=== PATIENT | female | born 1955 | race Caucasian/White ===

== ENCOUNTER 2020-09-01 13:42 | Emergency (ER) | payer MEDICARE, OTHER ==
[~2020-09-01] VITALS: Ht 154.9 cm; Wt 68.5 kg
[2020-09-01 13:54] VITALS: BP 131/83
[2020-09-01] MEDS ORDERED: KETOROLAC TROMETHAMINE 15 MG/ML VIAL ONE (14:30)
[2020-09-01] MEDS: KETOROLAC TROMETHAMINE INJ 30 MG/ML VIAL IM ONE (14:35)
[2020-09-01] MEDS ORDERED: IBUP-1955 PO (14:50)
--- NOTE | 2020-09-01 15:48 | NUR ---
CERTIFIED PUBLIC ACCOUNTANT CALLED FOR ASSISTANCE WITH RX PER REQUEST
== END 2020-09-01 16:09 | disposition home or self-care (01) ==
LOC: ER 13:58
DX: M17.12 Unilateral primary osteoarthritis, left knee (principal); E11.9 Type 2 diabetes mellitus without complications; Z79.899 Other long term (current) drug therapy
CPT/HCPCS: 73564; 96372; 99283; J1885

== ENCOUNTER 2021-05-22 17:25 | Emergency (ER) | payer BC, OTHER ==
[~2021-05-22] VITALS: Ht 154.9 cm; Wt 68.5 kg
[~2021-05-22 17:25] MED LIST: IBUP-1955 PO
--- NOTE | 2021-05-22 17:48 | NUR ---
IV LINE IS ESTABLISHED, BLOOD SPECIMEN COLLECTED AND SENT TO THE LAB. THE LINE IS SALINE LOCKED.
--- NOTE | 2021-05-22 17:48 | NUR ---
URINE COLLECTED AND SENT TO THE LAB
[2021-05-22] MEDS ORDERED: IV NS 0.9% 1,000 ML BAG IV ONE ×2 (18:00→19:00)
[2021-05-22] MEDS ORDERED: KETOROLAC TROMETHAMINE INJ 30 MG/ML VIAL IV ONE (18:00)
[2021-05-22] MEDS ORDERED: ONDANSETRON HCL/PF 4 MG/2 ML VIAL IVP ONE (18:00)
[2021-05-22] MEDS ORDERED: MORPHINE SULFATE INJ 2 MG/ML DISP.SYRIN IV ONE (18:00)
[2021-05-22] MEDS ORDERED: KETOROLAC TROMETHAMINE 15 MG/ML VIAL ONE (18:01)
[2021-05-22] MEDS ORDERED: MORPHINE SULFATE INJ 4 MG/ML DISP.SYRIN ONE (18:01)
[2021-05-22] MEDS ORDERED: ONDANSETRON HCL/PF 4 MG/2 ML VIAL ONE (18:01)
--- NOTE | 2021-05-22 18:05 | NUR ---
THE PATIENT IS TAKEN TO CT [facility]IA [facility]
[2021-05-22 18:22] LABS: BASOPHILS % (AUTO) 0.4 % (0.0-2.0); EOSINOPHILS % (AUTO) 0.4 % (0.0-6.0); HEMATOCRIT 43 % (33-45); HEMOGLOBIN 13.7 g/dL (11.5-14.8); LYMPHOCYTES # (AUTO) 3.5 K/uL (0.8-4.8); LYMPHOCYTES % (AUTO) 40.6 % (20.0-44.0); MEAN CORPUSCULAR HGB CONC 32 g/dl (31.0-36.0); MEAN CORPUSCULAR VOLUME 82 fL (82-100); MONOCYTES # (AUTO) 0.5 K/uL (0.1-1.30); MONOCYTES % (AUTO) 6.2 % (2.0-12.0); NEUTROPHILS # (AUTO) 4.5 K/uL (1.8-8.9); NEUTROPHILS % (AUTO) 52.4 % (43.0-81.0); PLATELET COUNT (AUTO) 181 K/uL (150-450); RED BLOOD CELL COUNT(AUTO) 5.16 MIL/uL (4.0-5.2); WHITE BLOOD COUNT (AUTO) 8.6 K/uL (4.3-11.0)
[2021-05-22 18:25] LABS: BILIRUBIN,URINE NEGATIVE (NEGATIVE); COLOR,URINE YELLOW (YELLOW); LEUKOCYTE ESTERASE ,URINE NEGATIVE (NEGATIVE); NITRITE, URINE NEGATIVE (NEGATIVE); PH,URINE 5.5 (5.0-8.0); PROTEIN,URINE NEGATIVE (NEGATIVE); UGLUCOSE >=1000 mg/dL (NEGATIVE); UROBILINOGEN,URINE 0.2 EU/dL (0.2)
--- NOTE | 2021-05-22 18:27 | NUR ---
THE PATIENT IS BACK FROM [facility]IA [facility]
[2021-05-22 18:51] LABS: CALCIUM, SERUM 8.4 mg/dL (8.5-10.1); POTASSIUM 3.8 mmol/L (3.5-5.1)
[2021-05-22 18:58] LABS: BILIRUBIN,DIRECT 0.1 mg/dL (0.0-0.2); BILIRUBIN,TOTAL 0.3 mg/dL (0.2-1.0)
[2021-05-22 18:59] LABS: ALBUMIN 3.2 g/dL (3.4-5.0)
[2021-05-22] MEDS ORDERED: INSULIN REGULAR, HUMAN 100 UNIT/ML 10 ML VIAL SQ ONE (19:00)
[2021-05-22] MEDS ORDERED: PIPERACILLIN /TAZOBACTAM 3.375 G in IV D5W 50 ML IV ONE (19:30)
[2021-05-22] MEDS ORDERED: AMOX-430 PO (19:33)
[2021-05-22] MEDS ORDERED: IBUP-1957 PO (19:33)
[2021-05-22] MEDS ORDERED: HYDR-3972 PO (19:33)
[2021-05-22] MEDS ORDERED: PIPERACILLIN /TAZOBACTAM 3.375 G VIAL IV ONE (19:36)
--- NOTE | 2021-05-22 19:53 | NUR ---
REPORT GIVEN TO NURSE LALI FOR MELANIE
--- NOTE | 2021-05-22 20:23 | NUR ---
IV removed. Catheter intact and site benign. Pressure and 4x4 applied to site. No bleeding noted.Patient discharged to home in stable condition. Written and verbal after care instructions given. Patient verbalizes understanding of instruction.
[2021-05-22 22:05] VITALS: BP 145/88
== END 2021-05-22 22:29 | disposition home or self-care (01) ==
LOC: ER 17:36
DX: K57.32 Diverticulitis of large intestine without perforation or abscess without bleeding (principal); E11.65 Type 2 diabetes mellitus with hyperglycemia; I10 Essential (primary) hypertension; Z90.49 Acquired absence of other specified parts of digestive tract; Z60.2 Problems related to living alone
CPT/HCPCS: 36415; 71045; 74176; 76856; 80048; 80076; 81003; 83690; 85025; 93005; 96361; 96365; 96375; 99285; J1885; J2270; J2405; J2543 ×2; J7030 ×2; J7060

== ENCOUNTER 2021-12-21 11:47 | Emergency (ER) | payer BC, OTHER ==
[~2021-12-21] VITALS: Ht 152.4 cm; Wt 66.7 kg
[~2021-12-21 11:47] MED LIST changes: +AMOX-430 PO; +HYDR-3972 PO; +IBUP-1957 PO
--- NOTE | 2021-12-21 12:00 | NUR ---
RECIVED PT 66 yrs female from home c/o lt lower abdominal pain for 3 days
--- NOTE | 2021-12-21 12:10 | NUR ---
UA SENT TO LAB
--- NOTE | 2021-12-21 12:15 | NUR ---
BLOOD DROW BY LAB TACH
[2021-12-21 12:40] LABS: BASOPHILS % (AUTO) 0.4 % (0.0-2.0); EOSINOPHILS % (AUTO) 1.1 % (0.0-6.0); HEMATOCRIT 38 % (33-45); LYMPHOCYTES # (AUTO) 2.4 K/uL (0.8-4.8); LYMPHOCYTES % (AUTO) 42.1 % (20.0-44.0); MEAN CORPUSCULAR HGB CONC 32 g/dl (31.0-36.0); MEAN CORPUSCULAR VOLUME 81 fL (82-100); MONOCYTES # (AUTO) 0.5 K/uL (0.1-1.30); MONOCYTES % (AUTO) 8.2 % (2.0-12.0); NEUTROPHILS # (AUTO) 2.8 K/uL (1.8-8.9); NEUTROPHILS % (AUTO) 48.2 % (43.0-81.0); PLATELET COUNT (AUTO) 214 K/uL (150-450); RED BLOOD CELL COUNT(AUTO) 4.65 MIL/uL (4.0-5.2); WHITE BLOOD COUNT (AUTO) 5.8 K/uL (4.3-11.0)
[2021-12-21] MEDS ORDERED: IOHEXOL-300 100 ML VIAL IV ONE (12:52)
[2021-12-21] MEDS ORDERED: CT SWABBABLE VALVE TRANS SET 1 EA INFUS.SET MC ONE (12:52)
[2021-12-21] MEDS ORDERED: IV NS 0.9% 250 ML IV ONE (12:53)
[2021-12-21] MEDS ORDERED: KETOROLAC TROMETHAMINE INJ 30 MG/ML VIAL ONE (12:57)
[2021-12-21 12:58] LABS: BILIRUBIN,URINE NEGATIVE (NEGATIVE); COLOR,URINE YELLOW (YELLOW); LEUKOCYTE ESTERASE ,URINE NEGATIVE (NEGATIVE); NITRITE, URINE NEGATIVE (NEGATIVE); PH,URINE 6.5 (5.0-8.0); PROTEIN,URINE NEGATIVE (NEGATIVE); UGLUCOSE >=1000 mg/dL (NEGATIVE); UROBILINOGEN,URINE 0.2 EU/dL (0.2)
[2021-12-21] MEDS ORDERED: KETOROLAC TROMETHAMINE INJ 30 MG/ML VIAL IV ONE (13:00)
--- NOTE | 2021-12-21 13:00 | NUR ---
C/O ABDOMINAL PAIN 10/10 ABDOMIN SOFT NONE TENDER TO TOUCH
[2021-12-21 13:32] LABS: ALBUMIN 3.2 g/dL (3.4-5.0); BILIRUBIN,DIRECT 0.1 mg/dL (0.0-0.2); BILIRUBIN,TOTAL 0.2 mg/dL (0.2-1.0); CALCIUM, SERUM 8.9 mg/dL (8.5-10.1); CREATININE 0.9 mg/dL (0.6-1.3); POTASSIUM 4.2 mmol/L (3.5-5.1); TOTAL PROTEIN, SERUM 7.1 g/dL (6.4-8.2)
[2021-12-21 13:47] LABS: BACTERIA,URINE Few /HPF (None Seen); RBC,URINE 0-2 /HPF (0-2); SQUAMOUS EPITHELIAL CELL,UR Few /HPF (None Seen)
[2021-12-21] MEDS ORDERED: MORPHINE SULFATE INJ 2 MG/ML DISP.SYRIN IV ONE (14:00)
[2021-12-21] MEDS ORDERED: MORPHINE SULFATE INJ 4 MG/ML DISP.SYRIN ONE (14:09)
--- NOTE | 2021-12-21 14:10 | NUR ---
TO CT SCAN OF ABDOMIN
[2021-12-21] MEDS ORDERED: IBUP-1957 PO (14:45)
[2021-12-21] MEDS ORDERED: HYDR-4209 PO (14:45)
[2021-12-21] MEDS ORDERED: ACET-868 PO (14:45)
--- NOTE | 2021-12-21 15:15 | NUR ---
d/c instraction given to pt fully and verblized understood d/c home with rx pt refused to sign requsted po antibotic
[2021-12-21 15:23] VITALS: BP 136/64
== END 2021-12-21 15:23 | disposition home or self-care (01) ==
LOC: ER 11:55
DX: R10.32 Left lower quadrant pain (principal); I10 Essential (primary) hypertension; K21.9 Gastro-esophageal reflux disease without esophagitis; E11.9 Type 2 diabetes mellitus without complications; Z98.890 Other specified postprocedural states; Z60.2 Problems related to living alone; Z79.899 Other long term (current) drug therapy
CPT/HCPCS: 99285; 74177; 96374; 96375; 85025; 80048; 83690; 80076; 81001; 36415; J2270; J1885; J7050; Q9967